=== PATIENT | female | born 2000 | race Caucasian/White ===

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

== ENCOUNTER → 2024-07-17 | Outpatient (CLI) | payer OTHER ==
[~2024-07-17] MED LIST changes: +CYCLOBENZAPRINE10 MG PO
== END | disposition home or self-care (01) ==
LOC: CT 07-14 14:00
PROVIDERS: ATTEND Family Medicine
DX: N28.1 Cyst of kidney, acquired (principal); R10.9 Unspecified abdominal pain

== ENCOUNTER → 2024-07-28 | Outpatient (CLI) | payer OTHER | END | disposition home or self-care (01) | LOC: US 12:46 | PROVIDERS: ATTEND Family Medicine | DX: N83.9 Noninflammatory disorder of ovary, fallopian tube and broad ligament, unspecified (principal) ==

== ENCOUNTER → 2025-04-10 | Outpatient (CLI) | payer OTHER | END | disposition home or self-care (01) | LOC: US 08:58 | PROVIDERS: ATTEND Family Medicine | DX: N83.02 Follicular cyst of left ovary (principal); N83.01 Follicular cyst of right ovary ==